=== PATIENT | male | born 1930 | race Caucasian/White ===

== ENCOUNTER 2018-09-23 08:23 | Emergency (ER) | payer OTHER | END 2018-09-23 12:31 | disposition home or self-care (01) | LOC: JER 08:23 ==

== ENCOUNTER 2019-02-16 06:43 | Day surgery (SDC) | payer OTHER ==
[2019-02-08 11:55] VITALS: BMI 25.7
[~2019-02-16 06:43] MED LIST: BUPIVICAINE 0.25%/MORPH PF/KETOROLAC - 51ML DISP.SYRINGE IA ONE; CEFAZOLIN 2 GM in DEXTROSE 5%-WATER - 50 ML IVPB ONE; CELECOXIB 200 MG CAPSULE PO ONE; TRANEXAMIC ACID 1000 MG/10 ML VIAL IVPUSH ONE
[2019-02-16] MEDS ORDERED: ceFAZolin SODIUM 1 GM VIAL ONE ×2 (07:20→07:41)
[2019-02-16] MEDS ORDERED: ONDANSETRON 4 MG/2 ML VIAL ONE (07:20)
[2019-02-16] MEDS ORDERED: SODIUM CHLORIDE 0.9% P/F 10 ML VIAL IJ ONE ×2 (07:20→08:03)
[2019-02-16] MEDS ORDERED: SUCCINYLCHOLINE CHLORIDE 200 MG/10 ML SYRINGE ONE (07:25)
[2019-02-16] MEDS ORDERED: GELATIN, ABSORBABLE 12-7MM EACH SPONGE TP ONE (07:41)
[2019-02-16] MEDS ORDERED: THROMBIN (RECOMBINANT) 5,000 UNIT VIAL TP ONE (07:41)
[2019-02-16] MEDS ORDERED: MIDAZOLAM HCL 2 MG/2 ML SINGLE DOSE VIAL ONE (07:56)
[2019-02-16] MEDS ORDERED: DEXAMETHASONE SOD PHOSPHATE/PF 10 MG/ML SDV ONE (07:57)
[2019-02-16] MEDS ORDERED: BUPIVACAINE HCL/PF 0.5% (5 MG/ML) 30 ML VIAL IJ ONE (07:57)
[2019-02-16] MEDS ORDERED: DEXMEDETOMIDINE HCL 200 MCG/2 ML IVPB ONE (08:00)
--- NOTE | 2019-02-16 08:06 | HP ---
Satellite [facility] - Chief Complaint Chief Complaint: right knee pain - Past Medical History Allergies/Adverse Reactions: Allergies Allergy/AdvReac Type Severity Reaction Status Date / Time No Known Drug Allergies Allergy Verified 09/23/18 09:01 - Current Medications Current Medications: Home Medications Medication Instructions Recorded Finasteride [Proscar -] 5 mg PO DAILY 09/08/15 Tamsulosin HCl [Flomax] 0.4 mg PO BID 09/08/15 Allopurinol [Zyloprim -] 100 mg PO BID 09/23/18 Furosemide [Lasix] 40 mg PO DAILY PRN 09/23/18 Cranberry 500 mg PO ASDIR 02/08/19 Magnesium 200 mg PO ASDIR 02/08/19 Satellite Physical Exam - Physical Examination Vital Signs: Vital Signs Period Temp Pulse Resp BP Sys/Gabriel Pulse Ox Last 24 Hr 53 17 132/64 97 General Appearance: Well Nourished, Well Developed, Alert & Oriented x3 ENT: Clear Lung: Normal air movement Heart: Regular rate & rhythm Extremities: Other (right knee- +Swelliing, + ttp medially, bessie rom, nvi, 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
[2019-02-16] MEDS ORDERED: BUPIVACAINE HCL/PF 0.5% (5MG/ML) 10 ML VIAL ONE (08:53)
[2019-02-16] MEDS ORDERED: TRANEXAMIC ACID 1000 MG/10 ML VIAL ONE (09:08)
[2019-02-16] MEDS ORDERED: FUROSEMIDE 40 MG TABLET (FP) PO PRN (09:46)
[2019-02-16] MEDS ORDERED: ONDANSETRON 4 MG/2 ML VIAL IVPUSH PRN (09:47)
[2019-02-16] MEDS ORDERED: MAG HYDROX/AL HYDROX/SIMETH 30 ML UNIT-DOSE CUP PO PRN (09:47)
[2019-02-16] MEDS ORDERED: FINASTERIDE 5 MG TABLET (FP) PO SCH (10:00)
[2019-02-16] MEDS ORDERED: MULTIVITAMINS (DAILY MVI) TABLET (FP) PO SCH (10:00)
[2019-02-16] MEDS ORDERED: LACTATED RINGERS SOLUTION 1,000 ML IV SCH ×2 (10:00→12:38)
[2019-02-16] MEDS ORDERED: PANTOPRAZOLE 40 MG TABLET (FP) PO SCH (10:00)
[2019-02-16] MEDS ORDERED: BUPIVICAINE 0.25%/MORPH PF/KETOROLAC - 51ML DISP.SYRINGE IA ONE ×2 (10:03→10:48)
[2019-02-16] MEDS ORDERED: oxyCODONE HCL 5 MG TABLET PO PRN (10:42)
[2019-02-16] MEDS ORDERED: VANCOMYCIN 1,000 MG VIAL (RESTRICTED TO ID ONLY) ONE (10:43)
[2019-02-16] MEDS ORDERED: ACETAMINOPHEN 325 MG TABLET (FP) PO SCH (10:45)
[2019-02-16] MEDS ORDERED: THROMBIN (BOVINE) 5,000 UNIT VIAL TP ONE (10:46)
[2019-02-16] MEDS ORDERED: GELATIN, ABSORBABLE 100 EACH SPONGE TP ONE (10:47)
[2019-02-16] MEDS ORDERED: VANCOMYCIN 1,000 MG VIAL (RESTRICTED TO ID ONLY) IVPB ONE (10:47)
--- NOTE | 2019-02-16 11:08 | OP ---
Operative Note - Note: Operative Date: 02/16/19 (deirdre) Pre-Operative Diagnosis: right knee medial djd Operation: right medial laquita ukr Post-Operative Diagnosis: Same as Pre-op Surgeon: Washington Jimenez Hide Paster: Andre Kilgore Anesthesiologist/STOCK FITTER: Edd López Anesthesia: Spinal, Local Specimens Removed: bone fragments Estimated Blood Loss (mls): 100 Operative Report Dictated: Yes
[2019-02-16] MEDS ORDERED: ACETAMINOPHEN 325 MG TABLET (FP) ONE (12:33)
--- NOTE | 2019-02-16 16:12 | PN ---
Progress Note, Physician Chief Complaint: AWAKE ALERT S/P RIGHT KNEE KENZIE COMFORTABLE - Current Medication List Current Medications: Active Medications Acetaminophen (Tylenol -) 650 mg PO Q6H [facility] Stop: 02/19/19 19:59 Al Hydroxide/Mg Hydroxide (Mylanta Oral Suspension -) 30 ml PO Q4H PRN PRN Reason: DYSPEPSIA Allopurinol (Zyloprim -) 100 mg PO BID [facility] Aspirin (Asa -) 325 mg PO DAILY@0800 [facility] Fentanyl (Sublimaze Injection -) 25 mcg IVPUSH [id number] PRN PRN Reason: PAIN-PACU ORDER X 4 DOSES ONLY Finasteride (Proscar -) 5 mg PO DAILY [facility] Furosemide (Lasix -) 40 mg PO DAILY PRN PRN Reason: SWELLING Cefazolin Sodium/Dextrose (Ancef 2 Gm Premixed Ivpb -) 2 gm in 50 mls @ 100 mls /hr IVPB Q8H-IV DEVENDRA Stop: 02/17/19 02:29 Lactated Ringer's (Lactated Ringers Solution) 1,000 mls @ 75 mls/hr IV ASDIR DEEVNDRA Stop: 02/17/19 06:00 Last Admin: 02/16/19 12:44 Dose: 0 mls Multivitamins/Minerals/Vitamin C (Tab-A-Vit -) 1 tab PO DAILY [facility] Ondansetron HCl (Zofran Injection) 4 mg IVPUSH Q6H PRN PRN Reason: NAUSEA Oxycodone HCl (Roxicodone -) 5 mg PO Q3H PRN PRN Reason: PAIN LEVEL 1-5 Pantoprazole Sodium (Protonix -) 40 mg PO DAILY [facility] Senna/Docusate Sodium (Pericolace -) 2 tablet PO BID [facility] Tamsulosin HCl (Flomax -) 0.4 mg PO BID [facility] - Objective Vital Signs: Vital Signs Temperature 97.9 F 02/16/19 13:47 Pulse Rate 52 L 02/16/19 13:47 Respiratory Rate 20 02/16/19 13:47 Blood Pressure 152/70 02/16/19 13:47 O2 Sat by Pulse Oximetry (%) 97 02/16/19 12:42 Constitutional: Yes: Mild Distress Cardiovascular: Yes: Regular Rate and Rhythm Respiratory: Yes: WNL Gastrointestinal: Yes: WNL Genitourinary: Yes: Other Extremities: Yes: Other (RIGHT KNEE DRESSING INTACT) Edema: No Integumentary: Yes: Other Wound/Incision: Yes: Dressing Dry and Intact ...Motor Strength: RLE Psychiatric: Yes: WNL Problem List - Problems (1) Status post right knee replacement Code(s): Z96.651 - PRESENCE OF RIGHT ARTIFICIAL KNEE JOINT (2) Urinary retention due to benign prostatic hyperplasia Code(s): N40.1 - BENIGN PROSTATIC HYPERPLASIA WITH LOWER URINARY TRACT SYMP; R33.8 - OTHER RETENTION OF URINE (3) Hyperuricemia Code(s): E79.0 - HYPERURICEMIA W/O SIGNS OF INFLAM ARTHRIT AND TOPHACEOUS DIS Assessment/Plan S/P RIGHT KNEE KENZIE PAIN CONTROL DVT PROPHYLAXIS POT EVAL INCENTIVE SPIROMETRY PATIENT USES STRAIGHT CATHETER FOR URINARY RETENTION HIS BROUGHT THE URINARY CATHETERS FROM HOME
[2019-02-16] MEDS: CEFAZOLIN 2 GM/D5W 2 GM/50 ML ML IVPB SCH (17:00)
[2019-02-16] MEDS: ACETAMINOPHEN 325 MG TABLET (FP) PO SCH (20:40)
[2019-02-16] MEDS: SENNOSIDES/DOCUSATE COMBO (SENNA PLUS) TABLET (UD) PO SCH (21:50)
[2019-02-16] MEDS: TAMSULOSIN HCL 0.4 MG CAP PO SCH (21:50)
[2019-02-16] MEDS: ALLOPURINOL 100 MG TABLET (FP) PO SCH (21:50)
[2019-02-17] MEDS: ACETAMINOPHEN 325 MG TABLET (FP) PO SCH ×2 (02:10→09:53)
[2019-02-17] MEDS: CEFAZOLIN 2 GM/D5W 2 GM/50 ML ML IVPB SCH (02:10)
[2019-02-17 07:48] LABS: HEMATOCRIT 38.2 % (35.4-49); HEMOGLOBIN 12.6 GM/dl (11.7-16.9); MCH 29.5 pg (25.7-33.7); MCHC 33.1 g/dl (32.0-35.9); MEAN CELL VOLUME 89.2 fl (80-96); MEAN PLT VOLUME 8.1 fl (7.5-11.1); PLATELET COUNT 205 K/MM3 (134-434); RBC 4.28 M/mm3 (4.00-5.60); RDW 14.6 % (11.9-15.9)
[2019-02-17 07:49] LABS: CALCIUM 8.4 mg/dl (8.5-10); CREATININE 2.2 mg/dl (0.55-1.3); POTASSIUM 4.5 mmol/L (3.5-5.1)
[2019-02-17] MEDS ORDERED: ASPIRIN 325 MG TABLET PO SCH (08:00)
--- NOTE | 2019-02-17 08:05 | PN ---
Progress Note (short form) - Note Progress Note: Ortho Pt seen and examined s/p right medial laquita ukr pod #1 Selected Entries 02/17/19 05:00 Temperature 98.3 F Pulse Rate 51 L Respiratory 18 Rate Blood Pressure 112/93 Laboratory Tests 02/17/19 07:10 WBC 13.0 H Hgb 12.6 Hct 38.2 Plt Count 205 dressing c/d/i, calf soft, nt rom 0-80, nvi a/p PT dvt ppx pain control d/c home today f/u in 1 week
--- NOTE | 2019-02-17 08:06 | DS ---
Physical Examination Vital Signs: Vital Signs Temperature 98.3 F 02/17/19 05:00 Pulse Rate 51 L 02/17/19 05:00 Respiratory Rate 18 02/17/19 05:00 Blood Pressure 112/93 02/17/19 05:00 O2 Sat by Pulse Oximetry (%) 97 02/17/19 06:32 Labs: CBC, BMP 02/17/19 07:10 02/17/19 07:10 Discharge Summary Problems reviewed: Yes Reason For Visit: OSTEOARTHRITIS Current Active Problems Hyperuricemia (Acute) Status post right knee replacement (Acute) Urinary retention due to benign prostatic hyperplasia (Acute) Procedures: Principal: right medial laquita ukr Hospital Course: admitted for elective right medial laquita ukr, post-op as per protocol, stable for d/c Condition: Good - Instructions Diet, Activity, Other Instructions: Post-op Instructions-Partial Knee Replacement Call the office for a follow-up appointment in 1 week - [phone] Aspirin 325mg daily for 6 weeks. Pain medication was sent into your pharmacy. Apply Graduated Compression Stockings (TEDs) to both lower extremities- remove daily for hygiene ONLY Apply Sequential Compression Device (SCDs) to both Lower extremities remove for PT and hygiene ONLY Apply cold packs to affected area for 15 minutes every 2 hours. Physical Therapist will come to your home for the first 5 days. You will be set up with outpatient PT at your first post-operative visit. Patient may ambulate as tolerated-encourage self care (at least every 2-3 hours while awake) with walker or cane Maintain Aquacel (waterproof) dressing to operative wound (will be removed by surgeon at first office visit) Shower with Aquacel dressing in place-if Aquacel integrity compromised, remove and apply dry sterile dressing and notify Orthopedist. DO NOT SHOWER unless Orthopedists approves without Aquacel dressing CONTACT THE OFFICE FOR ANY CHANGE IN YOUR CONDITION (for example-fever greater than 102 degrees, excessive bleeding from operative site, purulent drainage, severe swelling or pain) GO TO THE EMERGENCY ROOM IF THERE IS A MEDICAL EMERGENCY Knee Precautions: * Keep a rolled towel under affected heel while in bed or chair (to keep knee in extension) * Keep affected leg elevated except during mealtimes * DO NOT PLACE PILLOW UNDER AFFECTED KNEE * If you have any questions, please do not hesitate to call the office - . Referrals: Washington Jimenez MD [Staff Physician] - Disposition: VNS/HOME HEALTH CARE - Home Medications Comprehensive Discharge Medication List: Ambulatory Orders Finasteride [Proscar -] 5 mg PO DAILY 09/08/15 Tamsulosin HCl [Flomax -] 0.4 mg PO BID 09/08/15 Allopurinol [Zyloprim -] 100 mg PO BID 09/23/18 Furosemide [Lasix] 40 mg PO DAILY PRN 09/23/18 Cranberry 500 mg PO ASDIR 02/08/19 Magnesium 200 mg PO ASDIR 02/08/19 Aspirin [ASA -] 325 mg PO DAILY@0800 tablet 02/16/19 Oxycodone HCl/Acetaminophen [Percocet 5-325 mg Tablet -] 1 - 2 tab PO Q6H #50 tab MDD 8 02/16/19
[2019-02-17 09:03] VITALS: BP 122/50; PULSE 57; TEMP 98.9
[2019-02-17] MEDS: SENNOSIDES/DOCUSATE COMBO (SENNA PLUS) TABLET (UD) PO SCH (09:52)
[2019-02-17] MEDS: ALLOPURINOL 100 MG TABLET (FP) PO SCH (09:54)
[2019-02-17] MEDS: TAMSULOSIN HCL 0.4 MG CAP PO SCH (09:54)
--- NOTE | 2019-02-17 10:21 | PN ---
Progress Note, Physician Chief Complaint: AWAKE ALERT FEELS GOOD DENIES FEVER OR CHILLS NO CP OR SOB - Current Medication List Current Medications: Active Medications Acetaminophen (Tylenol -) 650 mg PO Q6H [facility] Stop: 02/19/19 19:59 Last Admin: 02/17/19 09:53 Dose: 650 mg Al Hydroxide/Mg Hydroxide (Mylanta Oral Suspension -) 30 ml PO Q4H PRN PRN Reason: DYSPEPSIA Allopurinol (Zyloprim -) 100 mg PO BID [facility] Last Admin: 02/17/19 09:54 Dose: 100 mg Aspirin (Asa -) 325 mg PO DAILY@0800 [facility] Last Admin: 02/17/19 09:52 Dose: 325 mg Finasteride (Proscar -) 5 mg PO DAILY [facility] Last Admin: 02/17/19 09:54 Dose: 5 mg Furosemide (Lasix -) 40 mg PO DAILY PRN PRN Reason: SWELLING Multivitamins/Minerals/Vitamin C (Tab-A-Vit -) 1 tab PO DAILY [facility] Last Admin: 02/17/19 09:54 Dose: 1 tab Ondansetron HCl (Zofran Injection) 4 mg IVPUSH Q6H PRN PRN Reason: NAUSEA Oxycodone HCl (Roxicodone -) 5 mg PO Q3H PRN PRN Reason: PAIN LEVEL 1-5 Pantoprazole Sodium (Protonix -) 40 mg PO DAILY [facility] Last Admin: 02/17/19 09:54 Dose: 40 mg Senna/Docusate Sodium (Pericolace -) 2 tablet PO BID [facility] Last Admin: 02/17/19 09:52 Dose: 2 tablet Tamsulosin HCl (Flomax -) 0.4 mg PO BID [facility] Last Admin: 02/17/19 09:54 Dose: 0.4 mg - Objective Vital Signs: Vital Signs Temperature 98.9 F 02/17/19 09:00 Pulse Rate 57 L 02/17/19 09:00 Respiratory Rate 19 02/17/19 09:00 Blood Pressure 122/50 L 02/17/19 09:00 O2 Sat by Pulse Oximetry (%) 99 02/17/19 09:00 Constitutional: Yes: No Distress Cardiovascular: Yes: Regular Rate and Rhythm Respiratory: Yes: WNL Gastrointestinal: Yes: WNL Genitourinary: Yes: Other Musculoskeletal: Yes: Muscle Weakness Edema: No Integumentary: Yes: WNL Wound/Incision: Yes: Clean/Dry Neurological: Yes: Other ...Motor Strength: RLE Psychiatric: Yes: WNL Labs: CBC, BMP 02/17/19 07:10 02/17/19 07:10 Problem List - Problems (1) Status post right knee replacement Code(s): Z96.651 - PRESENCE OF RIGHT ARTIFICIAL KNEE JOINT (2) Urinary retention due to benign prostatic hyperplasia Code(s): N40.1 - BENIGN PROSTATIC HYPERPLASIA WITH LOWER URINARY TRACT SYMP; R33.8 - OTHER RETENTION OF URINE (3) Hyperuricemia Code(s): E79.0 - HYPERURICEMIA W/O SIGNS OF INFLAM ARTHRIT AND TOPHACEOUS DIS Assessment/Plan S/P RIGHT KNEE KENZIE DY 2 NEEDS OUTPATIENT FOLLOW UP CRI CREATININE BASELINE IS 2.2 LEUKOCYTOSIS LIKELY REACTIVE NO FEVER REPEAT CBC/BMP IN 2-3 DAYS WITH PRIMARY DOCTOR PAIN CONTROL DVT PROPHYLAXIS POT EVAL INCENTIVE SPIROMETRY PATIENT USES STRAIGHT CATHETER FOR URINARY RETENTION HIS BROUGHT THE URINARY CATHETERS FROM HOME
--- NOTE | 2019-02-17 17:46 | SPEC ---
DATE OF OPERATION: 02/16/2019 PREOPERATIVE DIAGNOSIS: Degenerative joint disease, right knee. POSTOPERATIVE DIAGNOSIS: Degenerative joint disease, right knee. PROCEDURE: Right medial unicompartmental knee replacement with robotic-assisted navigation (MAKOplasty) and patelloplasty. SURGICAL ATTENDING: Washington Jimenez MD CLOTHES WRINGER: ROMIE Santo ANESTHESIA: Regional and spinal. CLOSURE: Medial unicompartmental KENZIE components with a 6 femur, 6 tibia, and a 9 polyethylene; No. 1 Vicryl, fascia; 0 and 2-0, subcutaneous; 3-0 Monocryl subcuticular with skin glue for skin; 4-0 undyed Vicryl for pin sites. ESTIMATED BLOOD LOSS: Less than 100 mL. COMPLICATIONS: None. CONDITION: To recovery in stable condition. DESCRIPTION OF OPERATIVE PROCEDURE: Patient was taken to the operating room on February 16, 2019. Spinal and regional anesthesia was administered by the anesthesiologist. IV Kefzol and TXA were administered prophylactically prior to the case. A well-padded pneumatic tourniquet was placed on the right proximal thigh. The right lower extremity was prepped and draped in the usual sterile fashion. A 6- to 8-cm longitudinal incision over the medial side of the patella from mid patella to the tibial tubercle was incised and was deepened using Bovie cautery. An arthrotomy was then made just medial to the patellar tendon and the patella. Subperiosteal dissection was done on the anteromedial proximal tibia all the way back to the MCL. Partial fat pad excision was performed, exposing the medial compartment. Checkpoint was malleable at both the femur and the tibia. Using 2 stab incisions in the femur 1 handbreadth above the patella on the femur and 2 stab incisions 1 handbreadth below the tibial tubercle on the tibia, 2 threaded pins were drilled in parallel fashion from anterior to posterior, going through the proximal cortex and engaging the 2nd but not through the 2nd cortex. To these threaded pins were fastened navigation rays, 1 on the femur and 1 on the tibia. The knee was then registered with the navigation device with the center of the rotation of the hip, medial and lateral malleoli, and multiple points both on the femur and on the tibia. Excellent registration of less than 0.5 mm was obtained on both to ensure adequate registration. The navigation device ensured us to "pop the bubbles" both on the femur and the tibia and that was performed and passed registration. The knee was then thoroughly inspected to remove all osteophytes both on the femur and the tibia. Also, osteophytes on the trochlea and on the surface of the patella were removed as well. The knee was then stressed with valgus stress at 0, 30, 60, 90, and 120 degrees of flexion. This propagated a looseness/tightness graft. The virtual positions of the components were then optimized to ensure an excellent graft. The tracking also was optimized by manipulating the virtual position to ensure that the femoral component articulated with the central portion of the tibial component. The robot was then brought into the field and was registered. The robot was used to bur the bone on both the femur and the tibia as to the specifications of the components. The trial components were then applied on both the femur and the tibia with an appropriate polyethylene insert. The knee was taken through a range of motion and found to have full extension, full flexion, with excellent stability. Stressing the graft revealed an excellent looseness/tightness graft with the trial components in place. The trial components were removed. The knee was thoroughly irrigated with a copious amount of antibiotic irrigation. The real components were then cemented in using modern generation cement techniques with antibiotic cement and pressurization. After the cement was hardened, the knee was thoroughly inspected to remove out all excess cement. The real polyethylene insert was then clipped into place. Range of motion and stability were again assessed to be as they were with the trials. At this time, the pins and the checkpoints were removed. The knee was again thoroughly irrigated. The arthrotomy was closed with No. 1 Vicryl, 0 and 2-0 subcutaneous, and 3-0 Monocryl subcuticular with skin glue for the skin, 4-0 undyed Vicryl for the pin sites. Sterile pressure dressing was placed over the knee. Patient awakened from anesthesia and transferred to recovery in stable condition. No complications. Estimated blood loss negligible. X-rays postoperatively revealed excellent position of the components. Ruth Ann FELICIANO/[id number]
== END 2019-02-17 12:45 | disposition home health service (06) ==
LOC: FASUSAT 06:43 → FM/S 06:43 → FASUSAT 02-17 12:45
PROVIDERS: ATTEND Orthopaedic Surgery
PROC: 8E0YXBZ Computer Assisted Procedure of Lower Extremity (ICD-10-PCS; 2019-02-16)
PROC: 8E0Y0CZ Robotic Assisted Procedure of Lower Extremity, Open Approach (ICD-10-PCS; 2019-02-16)
PROC: 0SRC0L9 Replacement of Right Knee Joint with Medial Unicondylar Synthetic Substitute, Cemented, Open Approach (ICD-10-PCS; principal; 2019-02-16 09:56)
DX: M17.11 Unilateral primary osteoarthritis, right knee (principal)
CPT/HCPCS: 20985; 27446; C1776; S2900; 36415; 73560-TC-RT-FY; 80048; 85027; 94760; 97116-GP; 97163-GP